=== PATIENT | female | born 2005 | race Caucasian/White ===

== ENCOUNTER 2024-08-01 22:29 | Emergency (ER) | payer BC, SELFPAY ==
[2024-08-01 22:32] VITALS: BP 145/99
--- NOTE | 2024-08-01 23:00 | ED.GENMED ---
History of Present Illness
General
Chief Complaint: Allergic Reaction
Source: patient
Exam Limitations: none
Time Seen by Provider: 08/01/24 22:46
History of Present Illness
History of Present Illness:
This is a 19 year old female that comes in with c/o allergic reaction. States that she started with some hives on her neck this morning. State that she did use an old body spray and sprayed this on her neck and arms. States that the hives have
spread to her thighs and abd. States that she took Benadryl 25mg. States that she had chills. Denies any fever, chest pain, SOB, abd pain, nausea, vomiting, diarrhea, headache, dizziness, urinary burning.
Past History
Past History
ED Past Medical History: None; Negative Asthma, HTN, Hypercholesterolemia or NIDDM
ED Past Surgical History: Tonsilectomy and Other (wisdom teeth)
Social History
Tobacco: Former smoker (vaped)
Alcohol: None
Drug: None
Personal: Single
Living: with family
Review of Systems
Review of Systems
All Other Systems: ROS reviewed and negative except as documented in HPI and ROS
Constitutional: Reports chills; Denies fever
EENT: Reports no symptoms
Respiratory: Reports no symptoms; Denies cough or trouble breathing
Cardiac: Reports no symptoms; Denies chest pain
ABD/GI: Reports no symptoms; Denies abdominal pain, nausea, vomiting or diarrhea
: Reports no symptoms; Denies dysuria, frequency or urgency
Musculoskeletal: Reports no symptoms
Skin: Reports other (Hives that itch)
Neurological: Reports no symptoms; Denies dizzy or headache
Psychiatric: Reports no symptoms
Phy Exam
General Physical Exam
General Presentation: no apparent distress
General age: appears stated age
General Skin: warm and dry
General Habitus: normal
General Mental: alert
General Hydration: appears well hydrated
ENT Exam
ENT Exam: TM's normal, pharynx normal and neck supple
Eye Exam
Eye Exam: EOMI
Cardiovascular Exam
Cardiovascular Exam: regular rate/rhythm, no edema, no murmur and normal peripheral pulses
Pulmonary Exam
Pulmonary Exam: lungs clear, no respiratory distress, no rales, chest non tender, no crackles, no rhonchi, no wheezing and no cough
Gastrointestinal Exam
Gastrointestinal Exam: normal bowel sounds, non tender, soft, no organomegaly, no pulsatile mass and non distended
Musculoskeletal Exam
Musculoskeletal Exam: full ROM and no edema
Skin Exam
Skin Exam: normal color, warm/dry and other (Hives noted over the neck laterally and posterior neck along the hair line, arms and lightly on the back and lower abd onto the upper thighs. )
Psychiatric Exam
Psychiatric Exam: normal mood/affect
Course
Orders/Labs/Results
Orders:
Orders
08/01/24 22:59
Dexamethasone Sod Phosphate [Decadron] 20 mg IV NOW STA
Diphenhydramine [Benadryl] 25 mg IV NOW STA
Famotidine [Pepcid] 20 mg IV NOW STA
Vital Signs
Initial and Last Documented VS:
Initial Vital Signs
Temp Pulse Resp BP Pulse Ox
98.6 F 90 18 145/99 100
08/01/24 22:32 08/01/24 22:32 08/01/24 22:32 08/01/24 22:32 08/01/24 22:32
Last Documented Vital Signs
Temp Pulse Resp BP Pulse Ox
98.6 F 90 18 131/76 100
08/01/24 22:32 08/01/24 22:32 08/01/24 22:32 08/01/24 23:30 08/01/24 23:26
MDM/Problems Addressed
Differential Diagnosis Includes:
Allergic reaction, Hives
MDM/Problems Addressed:
This is a 19 year old female that comes in with c/o hives. states that this started this morning on her neck after she sprayed an old body spray. States that the hives have continued onto the arms, abd and thighs.
will medicated with IV Benadryl, Decadron and Pepcid
back over to see patient. Hives and redness have decreased some. will place patient on Prednisone for the next 3 days. Patient can continue to us Pepcid daily and Benadryl as needed for the itching. Patient to follow up with the family doctor and
an supervisor partial denture department. Patient to return with any concerns.
Chronic conditions affecting care:
NA
Acute Exacerbation and/or Progression of Chronic Illness:
NA
*Pulse Oximetry
Patient hypoxic: no
*EKG
Interpreted by ED Provider?: NA
Rate: EKG- N/A
*Hazmat Cdl A Driver Interpretation
Rate: Hazmat Cdl A Driver- N/A
*Critical Care Note
Total Time (30-74mins, 75-104mins- exclusive of procedures): Not Applicable
ED Attending Note
-
Portions of this chart may have been created with voice recognition software.� Occasional wrong word or��sound alike� substitutions may have occurred due to the inherent limitations of voice recognition software.
Discharge Plan
Departure
Patient Disposition: Home (Routine Discharge)
Date of Disposition: 08/02/24
Time of Disposition: 00:43
Patient with high blood pressure during this ER visit?: Yes
Condition: Good
Covid-19: Not Applicable
Discharge Problem:
Hives
Instructions: Hives (DC), BLOOD PRESSURE
Prescriptions:
New
prednisone 20 mg tablet
40 mg PO DAILY Qty: 6 0RF
Referrals:
Lily Mcbride, [Family Provider] - Follow up in 2-3 days
Activity Restrictions/Additional Instructions:
As discussed, you hives have appeared to decrease some. Please continue with Benadryl 50mg every 8 hour as needed for the itching. You can also take Pepcid 40mg daily which is over the counter to decrease the histamine release. You have had a
prescription for Prednisone sent to your pharmacy for the next 3 days. This will help decrease the hives. Follow up with the family doctor for recheck. You may wish to also see an supervisor partial denture department. IF YOU HAVE ANY DIFFICULTY BREATHING, OR YOU HAVE ANY
OTHER CONCERNS PLEASE RETURN TO THE EMERGENCY ROOM .
Interventions
Interventions:
*Risk Screen - Suicide Last Done: 08/01/24 23:09
*General Assessment Last Done: 08/01/24 23:09
*Neglect/Abuse Screening Last Done: 08/01/24 23:09
ED- Fall Risk Assessment Last Done: 08/01/24 23:28
*ED COVID-19 Vaccine History Last Done: 08/01/24 23:09
ED- Cardiac Assessment Last Done: 08/01/24 23:26
ED- Pulmonary Assessment Last Done: 08/01/24 23:26
ED-Skin Assessment Last Done: 08/01/24 23:26
Discharge Date and Time
Print Language: [id number]
[2024-08-01 23:05] VITALS: BMI 27.8
[2024-08-01] MEDS: DECADRON 20 MG IV (23:20)
[2024-08-01] MEDS: PEPCID 20 MG IV (23:20)
[2024-08-01] MEDS: BENADRYL 25 MG IV (23:20)
[2024-08-01 23:30] VITALS: BP 131/76
[2024-08-02 00:44] VITALS: BP 128/76
== END 2024-08-02 00:57 | disposition home or self-care (01) ==
LOC: EMR 22:29
PROVIDERS: EMERGENCY PHYSICIAN Emergency Medicine; FAMILY PHYSICIAN Family Medicine
DX: L50.9 Urticaria, unspecified (principal)
CPT/HCPCS: 99284; 96374; 96375

== ENCOUNTER → 2024-09-02 16:05 | Outpatient (REF) | payer BC, SELFPAY | LOC: HWRCS 16:05 | PROVIDERS: ATTENDING PHYSICIAN Internal Medicine; FAMILY PHYSICIAN Family Medicine | DX: R00.2 Palpitations (principal); R06.09 Other forms of dyspnea; I73.00 Raynaud's syndrome without gangrene; R42 Dizziness and giddiness | CPT/HCPCS: 93306 ==

== ENCOUNTER → 2024-09-09 07:20 | Outpatient (REF) | payer BC, SELFPAY | LOC: RCS 07:20 | PROVIDERS: ATTENDING PHYSICIAN Internal Medicine; FAMILY PHYSICIAN Family Medicine | DX: R00.2 Palpitations (principal); R06.09 Other forms of dyspnea; I73.00 Raynaud's syndrome without gangrene; R42 Dizziness and giddiness | CPT/HCPCS: 93017 ==